=== PATIENT | male | born 1945 | race Caucasian/White ===

== ENCOUNTER → 2024-09-17 | Day surgery (SDC) | payer OTHER ==
[~2024-09-17] MED LIST: Lidocaine 1% (PF) 30 ML VIAL ONE; PROPOFOL 200 MG/20 ML VIAL ONE
[2024-09-17 12:16] VITALS: BP 138/76; TEMP 98.3
== END ==
LOC: CSHSDC 08:51
PROVIDERS: ATTEND Internal Medicine Cardiovascular Disease
PROC: B24BZZ4 Ultrasonography of Heart with Aorta, Transesophageal (ICD-10-PCS; principal; 2024-09-17)
DX: I34.0 Nonrheumatic mitral (valve) insufficiency (principal); I12.9 Hypertensive chronic kidney disease with stage 1 through stage 4 chronic kidney disease, or unspecified chronic kidney disease; N18.2 Chronic kidney disease, stage 2 (mild); E78.5 Hyperlipidemia, unspecified; E03.9 Hypothyroidism, unspecified; Z86.73 Personal history of transient ischemic attack (TIA), and cerebral infarction without residual deficits; Z96.643 Presence of artificial hip joint, bilateral; Z87.891 Personal history of nicotine dependence; Z90.49 Acquired absence of other specified parts of digestive tract; Z88.0 Allergy status to penicillin; Z88.8 Allergy status to other drugs, medicaments and biological substances
CPT/HCPCS: 93312; 94640; J2704; J7620

== ENCOUNTER 2024-09-21 00:47 | Emergency (ER) | payer OTHER ==
[2024-09-21 01:17] LABS: #Basophils 0.03 10x3/uL (0.0-0.2); #Eosinophils 0.79 10x3/uL (0.0-0.5); #Monocytes 0.83 10x3/uL (0.0-1.1); #Neutrophils 5.92 10x3/uL (1.5-8.4); %Basophils 0.3 % (0.0-2.0); %Eosinophils 7.8 % (0.0-6.0); %Lymphocytes 24.6 % (18.0-47.0); %Monocytes 8.2 % (0.0-10.0); %Neutrophils 58.7 % (40.0-75.0); Hematocrit 41.7 % (38.8-50.0); Hemoglobin 13.5 g/dL (13.5-17.5); Mean Corpuscular Hemoglobin 29.2 pg (27.0-33.0); Mean Corpuscular Volume 90.3 fL (81.2-95.1); Platelet Count 237 10x3/uL (150-450); Red Blood Cell (RBC) Count 4.62 10x6/uL (4.32-5.72); White Blood Cell (WBC) Count 10.09 10x3/uL (3.5-10.5)
[2024-09-21 01:29] LABS: ALT (SGPT) 39 U/L (Less than 45); AST (SGOT) 44 U/L (11-34); Albumin 4.1 g/dL (3.1-4.5); Alkaline Phosphatase 209 U/L (40-110); Anion Gap 15 mmol/L (10-20); BUN (Urea Nitrogen) 23 mg/dL (8.4-25.7); Bilirubin, Total 1.3 mg/dL (0.3-1.2); Calc. Creatinine Clearance 0 mL/min (70-130); Calcium 9.6 mg/dL (7.8-10.44); Carbon Dioxide 22 mmol/L (23-31); Chloride 107 mmol/L (98-107); Globulin 3.5 g/dL (2.4-3.5); Glucose 115 mg/dL (83-110); Potassium 4.1 mmol/L (3.5-5.1); Sodium 140 mmol/L (136-145)
[2024-09-21 01:35] LABS: Troponin I 0.034 ng/mL (< 0.028)
[2024-09-21] MEDS ORDERED: Dexamethasone 10 MG/ML VIAL ONE (03:48)
== END 2024-09-21 03:47 | disposition home or self-care (01) ==
LOC: CSHERS 00:47
DX: J42 Unspecified chronic bronchitis (principal); I34.0 Nonrheumatic mitral (valve) insufficiency; J45.909 Unspecified asthma, uncomplicated; I48.91 Unspecified atrial fibrillation; Z79.899 Other long term (current) drug therapy; Z79.01 Long term (current) use of anticoagulants; Z79.51 Long term (current) use of inhaled steroids; Z79.890 Hormone replacement therapy
CPT/HCPCS: 71045; 71250; 80053; 83880; 84484; 85025; 93005; 96374; 99285; J1100; J7620